=== PATIENT | male | born 1990 | race Caucasian/White ===

== ENCOUNTER 2017-09-23 10:34 | Outpatient (CLI) | payer MEDICAID ==
--- NOTE | 2017-09-25 11:23 | RAD ---
MODIFIED BAIRUM SWALLOW: History: Dysphagia, R13.10 - feeding difficulties. R63.3. R29.35. FINDINGS: Various consistencies of barium were given to the patient. Spot images obtained. A total of 19.1 seconds of fluoroscopy was performed. DAP of 0.43 mGy*cm^2 and AK of 11.4 mGy*cm^2. Images demonstrate no evidence of aspiration with any of the consistencies. The patient tolerated the procedure demonstrating no evidence of aspiration with thin barium, nectar thick barium, and soft me chanical thin barium. IMPRESSION: Normal modified barium swallow. POS: [facility]
== END 2017-09-23 10:35 | disposition home or self-care (01) ==
PROVIDERS: ATTEND Family Medicine
DX: R13.10 Dysphagia, unspecified (principal); R63.3 Feeding difficulties; Q93.5 Other deletions of part of a chromosome
CPT/HCPCS: 74230